=== PATIENT | male | born 1950 | race Caucasian/White ===

== ENCOUNTER 2025-03-10 13:38 | Emergency (ER) | payer MEDICARE, BC ==
[~2025-03-10] VITALS: Ht 180.3 cm; Wt 89.8 kg
[2025-03-10 13:42] VITALS: TEMP 98.1
[2025-03-10 14:23] LABS: PLATELET COUNT (AUTO) 152 K/uL (150-450); RED BLOOD CELL COUNT(AUTO) 3.94 MIL/uL (4.5-6.0); RED CELL DISTRIBUTION WIDTH 17.4 % (11.5-15.0); WHITE BLOOD COUNT (AUTO) 3.1 K/uL (4.3-11.0)
[2025-03-10] MEDS: IV NS 0.9% 500 ML BAG IV ONE (14:35)
[2025-03-10 14:42] LABS: ASPARTATE AMINOTRANSFERASE 23 U/L (15-37); CALCIUM, SERUM 8.6 mg/dL (8.5-10.1); CREATININE 1.3 mg/dL (0.6-1.3); NT-PRO BNP 335 pg/mL (0-125); SODIUM SERUM 141 mmol/L (136-145); TOTAL PROTEIN, SERUM 6.3 g/dL (6.4-8.2); UREA NITROGEN, BLOOD 23 mg/dL (7-18)
[2025-03-10 14:54] LABS: INR 0.99 (0.91-1.10)
[2025-03-10 17:55] VITALS: BP 126/74; O2SAT 98
[2025-03-10 19:31] LABS: BAND % (MANUAL) 7 % (0.0-5.0); EOSINOPHILS % (MANUAL) 4 % (0-4); LYMPHOCYTES % (MANUAL) 14 % (16-48); METAMYELOCYTES % 4 % (0-0); MONOCYTES % (MANUAL) 5 % (0-11.0); NEUTROPHILS % (MANUAL) 66 (42-76); PLATELET ESTIMATE ADEQUATE
== END 2025-03-10 17:56 | disposition home or self-care (01) ==
LOC: ER 13:40
DX: I95.1 Orthostatic hypotension (principal); I10 Essential (primary) hypertension; Z86.018 Personal history of other benign neoplasm
CPT/HCPCS: 99285; 70450; 71045; 93005; 85027; 80048; 80076; 85007; 36415; 84484 ×2; 85730; 86850; 83880; J7040